=== PATIENT | male | born 1940 | race Caucasian/White ===

== ENCOUNTER 2020-02-01 10:51 | Inpatient (IN) ==
[2020-02-01 10:59] VITALS: BP 121/74; TEMP 97.8
[2020-02-01 11:22] LABS: BASOPHILS % (AUTO) 0.1 % (0.0-3.0); EOSINOPHILS # (AUTO) 0.1 K/ul (0.0-0.7); EOSINOPHILS % (AUTO) 0.8 % (0.0-7.0); HEMATOCRIT 24.9 % (42.0-52.0); HEMOGLOBIN 8.8 g/dl (14.0-18.0); IMMATURE GRANULOCYTE # (AUTO) 0.1 (0.0-1.0); IMMATURE GRANULOCYTE % (AUTO) 1.2 % (0.0-5.0); LYMPHOCYTES # (AUTO) 0.6 K/uL (0.60-3.4); LYMPHOCYTES % (AUTO) 5.3 (10.0-50.0); MEAN CORPUSCULAR HEMOGLOBIN 31.7 pg (27.0-31.0); MEAN CORPUSCULAR HGB CONC 35.3 (31.8-35.4); MEAN CORPUSCULAR VOLUME 89.6 fl (80.0-94.0); MONOCYTES # (AUTO) 0.9 K/uL (0.4-2.0); MONOCYTES % (AUTO) 7.4 (0-10); NEUTROPHILS # (AUTO) 10.2 K/ul (2.0-6.9); NEUTROPHILS % (AUTO) 85.2 % (42.2-75.2); PLATELET COUNT 316 10^3/uL (140-440); RDW COEFFICIENT OF VARIATION 13.3 % (11.6-14.8); RED BLOOD COUNT 2.78 10^6/ul (4.70-6.10); WHITE BLOOD COUNT 11.98 K/ul (4.2-10.2)
[2020-02-01 11:34] LABS: ALANINE AMINOTRANSFERASE 15.8 U/L (0-50); ALBUMIN 3.63 g/dL (3.5-5.0); ALKALINE PHOSPHATASE 66.2 U/L (56-119); ASPARTATE AMINO TRANSFERASE 33.2 U/L (17-59); BILIRUBIN,TOTAL 0.97 mg/dL (0.2-1.3); BLOOD UREA NITROGEN 26.6 mg/dL (9-20); CALCIUM 8.65 mg/dL (8.4-10.2); CARBON DIOXIDE 22.1 mmol/L (22-30.0); CHLORIDE 95.2 mmol/L (98-107); CREATININE 1.38 mg/dL (0.60-1.10); GLUCOSE 124.1 mg/dL (74-106); POTASSIUM 4.45 mmol/L (3.5-5.1); SODIUM 125.1 mmol/L (134.5-145); TOTAL PROTEIN 6.02 g/dL (6.3-8.2)
--- NOTE | 2020-02-01 11:47 | DI ---
EXAM: Two views of the right humerus. History: Right arm pain. Findings: No acute fracture or dislocation. Sclerosis and cystic change involving the superior late ral aspect of the humeral head. There is subcutaneous edema of the right arm. Impression: 1. No acute osseous abnormality. 2. Right arm cellulitis. 3. Probable rotator cuff disease. 4. No evidence for osteomyelitis
[2020-02-01] MEDS ORDERED: ROCEPHIN 2 GM/50 ML D5W 2 GM/50 ML BAG IV STA ×2 (12:42→13:01)
[2020-02-01] MEDS ORDERED: TENIVAC IM ONE (12:44)
[2020-02-01 13:09] LABS: BASOPHILS % (AUTO) 0.2 % (0.0-3.0); EOSINOPHILS % (AUTO) 0.3 % (0.0-7.0); HEMATOCRIT 26.6 % (42.0-52.0); HEMOGLOBIN 9.2 g/dl (14.0-18.0); IMMATURE GRANULOCYTE # (AUTO) 0.1 (0.0-1.0); LYMPHOCYTES # (AUTO) 0.6 K/uL (0.60-3.4); LYMPHOCYTES % (AUTO) 5.2 (10.0-50.0); MEAN CORPUSCULAR HEMOGLOBIN 31.3 pg (27.0-31.0); MEAN CORPUSCULAR HGB CONC 34.6 (31.8-35.4); MEAN CORPUSCULAR VOLUME 90.5 fl (80.0-94.0); MONOCYTES # (AUTO) 0.7 K/uL (0.4-2.0); NEUTROPHILS # (AUTO) 10.1 K/ul (2.0-6.9); NEUTROPHILS % (AUTO) 87.3 % (42.2-75.2); PLATELET COUNT 314 10^3/uL (140-440); RDW COEFFICIENT OF VARIATION 13.3 % (11.6-14.8); RED BLOOD COUNT 2.94 10^6/ul (4.70-6.10); WHITE BLOOD COUNT 11.63 K/ul (4.2-10.2)
[2020-02-01] MEDS ORDERED: MORPHINE 2 MG/ML SYRINGE IM STA (13:35)
[2020-02-01] MEDS ORDERED: MORPHINE 2 MG/ML SYRINGE IVP STA (13:45)
[2020-02-01] MEDS ORDERED: TYLENOL PO PRN (14:40)
--- NOTE | 2020-02-01 14:51 | ED.PDOC ---
General ED Provider: Dr. ADARSH MCDONALD Chief Complaint: Extremity Pain/Injury Stated Complaint: Infection R arm Time Seen by Physician: 11:00 Mode of Arrival: Wheelchair Information Source: Patient and Family Nursing and Triage Documentation Reviewed and Agree: Yes Does patient meet sepsis criteria?: No System Inflammatory Response Syndrome: Not Applicable Sepsis Protocol: For patient's 13 years and over: Temp is 96.8 and below OR 101 and greater Pulse >90 BPM Resp >20/minute Acutely Altered Mental Status Are patient's symptoms suggestive of a new infection, such as: -Pneumonia -Skin, Soft Tissue -Endocarditis -UTI -Bone, Joint Infection -Implantable Device -Acute Abdominal Infection -Wound Infection -Meningitis -Blood Stream Catheter Infection -Unknown Miscellaneous Complaint Exam Physical Examination Complaint/Exam Onset/Duration: Pt scratched himself vigorously on R forearm; introduced cellulitis x 3-4 d Symptoms Are: Still present Timing: Constant Episodes Lasting: Days Initial Severity: Severe Current Severity: Severe Location: R forearm Character: cellulitic: swollen, erythematous, painful. Aggravating: manipulation (Pt treated w multiple steroid rx several times a few months Alleviating: nothing Associated Signs and Symptoms: low BP, pain Related History: Reports No other known history Specific Findings: cellulitis R forearm. Pt is L handed. Differential Diagnoses: r/o Sepsis Review of Systems Review Of Systems Constitutional: Reports Weakness Eyes: Reports No symptoms Ears, Nose, Mouth, Throat: Reports No symptoms Respiratory: Reports No symptoms Cardiac: Reports No symptoms GI: Reports No symptoms : Reports No symptoms Musculoskeletal: Reports No symptoms Skin: Reports No symptoms Neurological: Reports No symptoms Endocrine: Reports No symptoms Hematologic/Lymphatic: Reports No symptoms All Other Systems: Reviewed and Negative FOR[facility]LY [facility] Medical History Arthritis Chronic eczema Contact dermatitis and eczema Hypertension Social History Smoking and tobacco status: Former smoker Physical Exam Physical Exam Appearance: Reports Ill-appearing and Thin Ill-appearing: Severe Pain Distress: Severe Eyes: Reports RACHAEL and EOMI ENT: Reports Ears normal, Nose normal and Oropharynx normal Neck: Supple Respiratory: Reports Airway patent and Breath sounds clear Cardiovascular: Reports RRR and Pulses normal GI/: Reports Soft and Nontender Musculoskeletal: Reports ROM intact Skin: Reports Warm Neurological: Reports Sensation intact, Motor intact, Cranial nerves intact and Oriented Psychiatric: Reports Depressed Critical Care Note Critical Care Note Total Time (mins): 0 Course Course Hematology/Chemistry: 02/01/20 13:00 02/01/20 11:10 Orders, Labs, Meds: Lab Review 02/01/20 02/01/20 02/01/20 11:10 11:10 11:10 WBC 11.98 H RBC 2.78 L Hgb 8.8 L Hct 24.9 L MCV 89.6 MCH 31.7 H MCHC 35.3 RDW Coeff of Sylvie 13.3 Plt Count 316 Immature Gran % (Auto) 1.2 Neut % (Auto) 85.2 H Lymph % (Auto) 5.3 L [place] % (Auto) 7.4 Eos % (Auto) 0.8 Baso % (Auto) 0.1 Neut # (Auto) 10.2 H Lymph # (Auto) 0.6 [place] # (Auto) 0.9 Eos # (Auto) 0.1 Baso # (Auto) 0.0 Immature Gran # (Auto) 0.1 Sodium 125.1 L Potassium 4.45 Chloride 95.2 L Carbon Dioxide 22.1 Anion Gap 12.25 BUN 26.6 H Creatinine 1.38 H Estimated GFR (MDRD) 49.00 BUN/Creatinine Ratio 19.27 Glucose 124.1 H Calcium 8.65 Total Bilirubin 0.97 AST 33.2 ALT 15.8 Alkaline Phosphatase 66.2 Total Protein 6.02 L Albumin 3.63 Globulin 2.39 Albumin/Globulin Ratio 1.51 Procalcitonin < 0.05 02/01/20 13:00 WBC 11.63 H RBC 2.94 L Hgb 9.2 L Hct 26.6 L MCV 90.5 MCH 31.3 H MCHC 34.6 RDW Coeff of Sylvie 13.3 Plt Count 314 Immature Gran % (Auto) 1.0 Neut % (Auto) 87.3 H Lymph % (Auto) 5.2 L [place] % (Auto) 6.0 Eos % (Auto) 0.3 Baso % (Auto) 0.2 Neut # (Auto) 10.1 H Lymph # (Auto) 0.6 [place] # (Auto) 0.7 Eos # (Auto) 0.0 Baso # (Auto) 0.0 Immature Gran # (Auto) 0.1 Sodium Potassium Chloride Carbon Dioxide Anion Gap BUN Creatinine Estimated GFR (MDRD) BUN/Creatinine Ratio Glucose Calcium Total Bilirubin AST ALT Alkaline Phosphatase Total Protein Albumin Globulin Albumin/Globulin Ratio Procalcitonin Orders Category Date Time Status ED APPLY O2 .ONCE EMERGENCY 02/01/20 12:47 Completed BLOOD CULTURE (ED ONLY) Stat LAB 02/01/20 13:00 Completed CBC W/ AUTO DIFF Stat LAB 02/01/20 11:10 Completed CBC W/ AUTO DIFF Stat LAB 02/01/20 13:00 Completed COMPREHENSIVE METABOLIC PANEL Stat LAB 02/01/20 11:10 Completed LACTIC ACID Stat LAB 02/01/20 14:35 Completed PROCALCITONIN Stat LAB 02/01/20 11:10 Completed Ceftriaxone/D5w 2 gm Premix [Rocephin 2 gm/50 ml D5w] MEDS 02/01/20 13:01 Discontinued 2 gm in 50 ml IV ONCE Tetanus and Diphtheria Tox/Pf [Tenivac] MEDS 02/01/20 12:44 Discontinued 0.5 ml IM .ONCE ONE HUMERUS, RIGHT 2 VIEWS Stat RADS 02/01/20 11:11 Completed Medications Discontinued Medications Generic Name Dose Route Start Last Admin Trade Name Freq PRN Reason Stop Dose Admin Acetaminophen 650 mg 02/01/20 14:40 Acetaminophen 325 Mg Tablet PO Q4H PRN If no pain, no medn. Enoxaparin Sodium 30 mg 02/01/20 15:00 02/01/20 15:47 Enoxaparin Sodium 30 Mg/0.3 Ml Syr SUBCUT 30 mg DAILY RENO Administration CEFTRIAXONE/D5W 2 GM PREMIX 2 gm in 50 mls @ 75 mls/hr 02/01/20 13:01 02/01/20 13:30 Rocephin 2 Gm/50 Ml D5w IV 02/01/20 13:40 75 mls/hr ONCE STA Administration Sodium Chloride 1,000 mls @ 75 mls/hr 02/01/20 15:00 02/01/20 15:43 Sodium Chloride IV 75 mls/hr .[id number] RENO Administration CEFTRIAXONE/D5W 1 GM PREMIX 1 gm in 50 mls @ 75 mls/hr 02/02/20 09:00 Rocephin 1 Gm/50 Ml D5w IV 02/05/20 08:59 DAILY RENO Tetanus/Diphtheria Toxoids Adsorbed 0.5 ml 02/01/20 12:44 02/01/20 13:30 Tetanus And Diphtheria Tox/Pf 0.5 Ml Disp.Syrin IM 02/01/20 12:45 Not Given .ONCE ONE Vital Signs: Temp Pulse Resp BP Pulse Ox 02/01/20 10:52 97.8 F 102 H 18 121/74 96 Discharge Plan Discharge Patient Disposition: ADMITTED INPATIENT Discharge Problem: Injury of upper extremity ED Provider: ADARSH MCDONALD Condition: Stable Physician Progress Note: []Labs ordered to r/o Sepsis. Please follow them on the floor.
[2020-02-01] MEDS ORDERED: LOVENOX SUBCUT SCH (15:00)
[2020-02-01] MEDS ORDERED: SODIUM CHLORIDE 1,000 ML IV SCH (15:00)
[2020-02-01 15:39] VITALS: BMI 24.2
[2020-02-02] MEDS ORDERED: ROCEPHIN 1 GM/50 ML D5W 1 GM/50 ML BAG IV SCH (09:00)
--- NOTE | 2020-03-02 14:33 | PCM.DC ---
Final Diagnosis: Infection R arm; possible compartment syndrome R arm. Reason for Hospitalization: infection R arm Prognosis at Discharge: guarded Condition at Discharge: guarded Medications at Discharge: Ambulatory Orders Medication Instructions Recorded amlodipine 5 mg PO DAILY 02/01/20 ascorbic acid (vitamin C) [Vitamin 500 mg PO DAILY 02/01/20 C] cholecalciferol (vitamin D3) 10 mcg PO DAILY 02/01/20 [Vitamin D3] diphenhydramine HCl [Benadryl] 50 mg PO BEDTIME 02/01/20 multivitamin 1 cap PO DAILY 02/01/20 omega-3 fatty acids [[place] 3] 1,000 mg PO DAILY 02/01/20 Lab/Diagnostics: refer to labs in chart Education Provided to Patient and Family: Pt and Mrs. Ortiz advised pt is being discharged to monitor his infection and possible development of compartment syndrome. and Mrs. Ortiz demonstrated that they understood the perils of compartment syndrome. Follow-ups: MD in [facility] will follow up. Discharge Disposition: Transfer Hospital Course: Pt improved from his presentation to ER; concern is that improvement may not be adequate to avert compartment syndrome. Plan: transfer to [facility].
== END 2020-02-01 20:30 | disposition short-term general hospital (02) | DRG 556 ==
LOC: ED 10:51 → MEDSURG B 14:10
PROVIDERS: ADMIT Emergency Medicine Emergency Medical Services; ATTEND Emergency Medicine Emergency Medical Services